=== PATIENT | female | born 1990 | race Caucasian/White ===

== ENCOUNTER → 2019-11-03 10:25 | Outpatient (BNVA) | payer MEDICAID, SELFPAY | PROVIDERS: Family Provider Chiropractor Orthopedic; Visit Provider Family Medicine | DX: K59.00 Constipation, unspecified (principal); N89.8 Other specified noninflammatory disorders of vagina; R10.2 Pelvic and perineal pain; R14.0 Abdominal distension (gaseous); Z20.2 Contact with and (suspected) exposure to infections with a predominantly sexual mode of transmission; Z72.51 High risk heterosexual behavior; R53.83 Other fatigue; Z13.29 Encounter for screening for other suspected endocrine disorder; Z87.42 Personal history of other diseases of the female genital tract | CPT/HCPCS: 80053; 81000; 81025; 84443; 85025; 87491; 87591; 87661 ==

== ENCOUNTER 2019-11-23 13:27 | Outpatient (CLI) | payer MEDICAID, SELFPAY ==
--- NOTE | 2019-11-23 14:15 | US_ITS ---
WS: [id number] TRANSABDOMINAL PELVIC AND TRANSVAGINAL PELVIC ULTRASOUND HISTORY: Pelvic pain, cyst on imaging 6 months ago COMPARISON: None available. Uterus: 6.5 cm x 4.4 cm x 3.5 cm. Normal size uterus is retroverted on transvaginal imaging. Endometrium: 0.5 cm. Normal homogeneity. Right ovary: 2.3 cm x 1.7 cm x 1.3 cm. Normal size and echogenicity. Several small follicles. Normal vascularity. Left ovary: 3.9 cm x 2.9 cm x 2.8 cm. Simple cyst associated with the LEFT ovary measures 2.7 x 2.8 x 2.7 cm. Normal vascularity within the visualized ovary. No free fluid. US/US pelvic with transvaginal IMPRESSION: 1. Small simple LEFT ovarian cyst with a maximum diameter of 2.8 cm. 2. Otherwise negative.
== END 2019-11-23 13:28 | disposition home or self-care (01) ==
PROVIDERS: Family Provider Chiropractor Orthopedic; Visit Provider Family Medicine
DX: R10.2 Pelvic and perineal pain (principal); N83.202 Unspecified ovarian cyst, left side
CPT/HCPCS: 76830; 76856

== ENCOUNTER → 2020-01-13 09:52 | Outpatient (BNVA) | payer MEDICAID, SELFPAY | PROVIDERS: Family Provider Chiropractor Orthopedic; Visit Provider Obstetrics & Gynecology | DX: Z12.4 Encounter for screening for malignant neoplasm of cervix (principal) | CPT/HCPCS: 88175 ==

== ENCOUNTER 2020-05-12 09:23 | Outpatient (CLI) | payer MEDICAID, SELFPAY ==
--- NOTE | 2020-05-12 09:36 | XR_ITS ---
WS: [id number] Lumbar spine, 3 views, 05/12/2020 Clinical Data: ACUTE MIDLINE LOW BACK PAIN WITH R SIDED SCIATICA Comparison: None. Findings: No compression fractures or subluxation is seen. No disc space narrowing is seen. The transverse proc esses and SI joints are normal. XR/XR lumbar spine 2-3V* [id number] Impression: Negative lumbar spine.
== END 2020-05-12 09:24 | disposition home or self-care (01) ==
PROVIDERS: PCP Chiropractor Orthopedic; Visit Provider Chiropractor Orthopedic
DX: M54.41 Lumbago with sciatica, right side (principal)
CPT/HCPCS: 72100

== ENCOUNTER 2021-12-17 11:53 | Emergency (ER) | payer MEDICAID, SELFPAY ==
[2021-12-17 12:14] VITALS: BP 124/79; PULSE 84; RESP 16; TEMP 36.3; O2SAT 99; BMI 30.2
--- NOTE | 2021-12-17 13:18 | ED_ITS ---
HPI - Skin/Abscess/Foreign Bdy General: Chief complaint: Skin/Abscess/Foreign Body Stated complaint: L breast RCR infection/sent by [facility] Time Seen by Provider: 12/17/21 12:17 Source: patient Mode of arrival: ambulatory History of Present Illness: 31-year-old female with a history of multiple abscesses of the breast and the really infectious had 2 resections of the uvula by a surgeon in [place] to prevent recurrent infections. She has not had any fever sweats or chills recently no drainage there is some mildly reddened area from the 10:00 to 1230 1 o'clock position radiating up from the bed superficially. Not had any other signs of infection. MD complaint: discoloration Onset (ago): day(s) Tetanus up to date: yes Severity: mild Quality: burning Pain Consistency: constant Relieving factors: none Exacerbating factors: none Associated symptoms: Deny chills, fever(s), nausea or vomiting Treatments prior to arrival: none Review of Systems Const: Denies: fever(s), chills, body aches, change in appetite, fatigue or malaise ENMT: Denies: throat pain, ear or mastoid pain, nasal discharge or nasal congestion Card: Denies: chest pain, edema, dyspnea on exertion or orthopnea Resp: Denies: dyspnea, productive cough or non-productive cough GI: Denies: abdominal pain, nausea, vomiting, hematemesis, coffee ground emesis, diarrhea, constipation, bloating, hematochezia or melena : Denies: flank pain, difficulty voiding, dysuria, urinary frequency or urinary urgency Skin/Breast: Denies: rash or pruritus PFSH ED PFSH: Medical History Hx gestational diabetes Had gestational diabetes with her second in 2013. States that she has not been screened for diabetes since then. Counseled about importance of being screened every 1 to 3 years to rule out development of diabetes mellitus. Migraines Diagnosed at the age of 16 and she follows up with a neurologist in [place]. Symptoms are controlled with pain medication and amitriptyline. No pertinent past medical history Patient denies history of: diabetes, asthma, hypertension, seizures, DVT/PE PCP: Dr. Rader Surgical History H/O lumpectomy x 5---> patient states these were done for infections where she has had more of an incision and drainage of purulent material. The last was in 2018. This was performed at the [facility] in [place]. She denies actually having a breast lump. Hx of tonsillectomy At the age of 10. She is not sure if her adenoids were removed as well. S/P appendectomy 2004--open procedure via right lower quadrant incision. Family History Family/Other Breast cancer maternal great grandmother, paternal great grandmother Father Hypertension Hyperlipidemia Heart disease Mother Thyroid condition Grandmother Breast cancer maternal and paternal, ages at diagnosis unknown Denies family history of Colon cancer Ovarian cancer Diabetes Uterine cancer Stroke Social History Smoking and tobacco status: current every day smoker cigarettes Packs smoked per day: 1 Alcohol intake: never History of recent travel: No Female Reproductive History: Date of last menstrual period: 11/14/21 Physical Exam Const: COMMON NORMALS: no acute distress GENERAL APPEARANCE: cooperative and comfortable ORIENTATION/CONSCIOUSNESS: Yes awake, Yes oriented to person, Yes oriented to place and Yes oriented to time HENMT: COMMON NORMALS: normocephalic, atraumatic and hearing grossly normal bilaterally HEAD & SCALP: normocephalic and atraumatic Chest: OTHER: Mild reddened area in the left breast from approximately 10:00 to 30 to 1 o'clock position minimal induration spreads about 4 inches from the areola the axilla is tender but there is no axillary lymphadenopathy palpated. Resp: COMMON NORMALS: normal respiratory effort, No retractions, No use of accessory muscles and clear to auscultation bilaterally AUSCULTATION: clear to auscultation bilaterally Cardio: COMMON NORMALS: regular rate, regular rhythm and No murmurs present (Cardio) RATE: regular rate RHYTHM: regular rhythm Extremity: COMMON NORMALS: normal to inspection, capillary refill normal, no clubbing, cyanosis or edema, no calf tenderness and no pedal edema Neuro: SENSORIUM/ORIENTATION: Yes oriented to person, Yes oriented to place and Yes oriented to time Course Vital Signs: Vital signs: Vital Signs Temperature 97.4 F L 12/17/21 12:14 Pulse Rate 84 12/17/21 12:14 Respiratory Rate 16 12/17/21 12:14 Blood Pressure 124/79 12/17/21 12:14 Pulse Oximetry 99 12/17/21 12:14 MDM - Skin/Abscess/Foreign Bdy Medicial Decision Making Mild cellulitis started on Bactrim follow-up with your doctor she usually follows for this issue in [place] return if she has worsening problems. Medical Records I reviewed the patient's medical records. Lab Data I reviewed the patient's lab results. Discharge Plan Discharge Patient Disposition: Home Clinical Impression: Cellulitis Condition: Stable Prescriptions: New Bactrim DS 800-160 mg tablet 1 tab PO BID 10 Days Qty: 20 0RF No Action baclofen 5 mg tablet 5 mg PO TID magnesium oxide 500 mg capsule 500 mg PO DAILY amitriptyline 10 mg tablet 10 mg PO DAILY qsfacxgkju-cmgwutlonvyax-xjkn 50-325-40 mg tablet 1 tab PO Q6H PRN swvqrnvjnp-[id number]-acetaminophen 6.25-5-10-325 mg/15 mL liquid PO prednisone 20 mg tablet 40 mg PO DAILY 5 Days Qty: 10 0RF albuterol sulfate [ProAir HFA] 90 mcg/actuation HFA aerosol inhaler 2 puff inhalation Q6H PRN (Reason: shortness of breath or wheezing) Qty: 8.5 0RF Discharge Orders: Discharge ED (Routine); Ordered 12/17/21 Ordered By: Mynor Cabezas Referrals: Patel Holman DO [Primary Care Provider] - Discharge Diet: Usual diet Discharge Activity: Resume usual activity Patient Instructions: Opioid Safety Activity Restrictions/Additional Instructions: Recheck in the next 24 to 48 hours with your primary care doctor. Coding Level of Care Code ED Account [facility]
== END 2021-12-17 13:35 | disposition home or self-care (01) ==
LOC: ER 13:22
PROVIDERS: Emergency Provider Family Medicine; PCP Family Medicine
DX: N61.0 Mastitis without abscess (principal); F17.210 Nicotine dependence, cigarettes, uncomplicated
CPT/HCPCS: 99283

== ENCOUNTER → 2023-09-10 10:11 | Outpatient (BNVA) | payer OTHER, MEDICAID, SELFPAY | PROVIDERS: PCP Family Medicine; Visit Provider Nurse Practitioner Family | DX: S60.222A Contusion of left hand, initial encounter (principal); X58.XXXA Exposure to other specified factors, initial encounter | CPT/HCPCS: 73130 ==